=== PATIENT | female | born 1980 | race Caucasian/White ===

== ENCOUNTER 2019-05-26 14:52 | Outpatient (CLI) | payer BC ==
--- NOTE | 2019-05-26 15:48 | RAD ---
XR Chest Pa Lat @ [facility] HISTORY: Chest pain COMPARISON: None FINDINGS: The heart size is normal. The lungs are well expanded without focal areas of consolidation, pneumoth orax or pleural effusions. Postop changes are seen in the left upper lung. IMPRESSION: No radiographic evidence of acute cardiopulmonary process.
== END 2019-05-26 14:53 | disposition home or self-care (01) ==
LOC: RAD 14:52
PROVIDERS: ATTEND Internal Medicine Cardiovascular Disease
DX: R07.9 Chest pain, unspecified (principal)
CPT/HCPCS: 71046

== ENCOUNTER 2020-11-04 07:54 | Outpatient (CLI) | payer OTHER ==
[2020-11-04 17:24] LABS: SARS-CoV-2 PCR by NAA Not Detected (NotDetected)
== END 2020-11-04 07:55 | disposition home or self-care (01) ==
LOC: LABBT 07:54
PROVIDERS: ATTEND Obstetrics & Gynecology
DX: Z01.812 Encounter for preprocedural laboratory examination (principal); Z20.822 Contact with and (suspected) exposure to COVID-19
CPT/HCPCS: 87635; U0003; U0005

== ENCOUNTER 2020-11-09 05:48 | Inpatient (IN) | payer BC ==
[2020-11-09] MEDS ORDERED: hydrALAZINE 20 MG/ML VIAL SLOW IVP PRN ×2 (06:13→08:48)
[2020-11-09] MEDS ORDERED: CEFAZOLIN 2 GM in Premix Bag 1 BAG IVPB SCH (06:13)
[2020-11-09] MEDS ORDERED: Bicitra 30 ML UDCUP PO PRN (06:13)
[2020-11-09] MEDS ORDERED: Lactated Ringer's 1,000 ML IV SCH (06:13)
[2020-11-09] MEDS ORDERED: Promethazine HCl 25 MG/ML VIAL IM PRN ×3 (06:13→08:48)
[2020-11-09] MEDS ORDERED: Ondansetron PF 4 MG/2 ML Vial IVP PRN ×3 (06:13→08:48)
[2020-11-09] MEDS ORDERED: Butorphanol Tartrate 1 MG/ML VIAL SLOW IVP PRN ×2 (06:13→20:30)
[2020-11-09] MEDS ORDERED: Famotidine/PF 20 mg/2ml Vial SLOW IVP PRN (06:13)
[2020-11-09] MEDS ORDERED: Acetaminophen 500 MG TAB PO PRN (06:13)
[2020-11-09 06:20] VITALS: BMI 26.4
[2020-11-09] MEDS ORDERED: Famotidine/PF 20 mg/2ml Vial ONE (06:35)
[2020-11-09] MEDS ORDERED: Morphine PF 10 MG/10 ML VIAL ONE (06:57)
[2020-11-09] MEDS ORDERED: Phenylephrine 40 MG/NS 250 ML 250 ML ONE (06:58)
[2020-11-09] MEDS ORDERED: Oxytocin 10 UNITS/ML VIAL ONE ×2 (06:58→08:09)
[2020-11-09 07:17] LABS: Mean Corpuscular HGB CONC 33.8 g/dL (32.0-36.0); Mean Corpuscular Hemoglobin 30.9 pg (27.0-31.0); Mean Corpuscular Volume 91.6 fL (78.0-98.0); Mean Platelet Volume 8.8 fL (7.4-10.4); Platelet Count 190 thou/uL (130-400); RBC Distribution Width 11.8 % (11.5-14.5); Red Blood Cell (RBC) Count 3.88 mill/uL (4.20-5.40)
[2020-11-09 07:56] LABS: Syphilis Antibody Nonreactive (Nonreactive); Syphilis Antibody Index 0.02 S/CO (<1.00 Non-Reactive)
[2020-11-09 07:57] LABS: HBSAg Index 0.18 S/CO (0-0.99); Hep B Surf Ag Non-Reactive S/CO (NonReactive)
[2020-11-09] MEDS ORDERED: Ondansetron HCl/PF 4 MG/2 ML Vial IVP PRN (08:21)
[2020-11-09] MEDS ORDERED: Naloxone HCl 0.4 mg/ml Vial IV PRN (08:21)
[2020-11-09] MEDS ORDERED: Meperidine HCl/PF 25 MG/ML VIAL SLOW IVP PRN (08:21)
[2020-11-09] MEDS ORDERED: L&D-Morphine 4 MG/ML VIAL SLOW IVP PRN (08:21)
[2020-11-09] MEDS ORDERED: Promethazine HCl 25 MG SUPP PR PRN (08:21)
[2020-11-09] MEDS ORDERED: diphenhydrAMINE 50 MG/ML VIAL IVP PRN (08:21)
[2020-11-09] MEDS ORDERED: Naloxone HCl 0.4 mg/ml Vial IVP PRN ×2 (08:21)
[2020-11-09] MEDS ORDERED: HYDROmorphone 2 MG/ML VIAL SLOW IVP PRN (08:21)
[2020-11-09] MEDS ORDERED: Communication Order-Pharmacy FS SCH (08:30)
[2020-11-09] MEDS ORDERED: Acetaminophen 325 MG TAB PO PRN (08:48)
[2020-11-09] MEDS ORDERED: Lanolin Ointment 7 GM TUBE TOP PRN (08:48)
[2020-11-09] MEDS ORDERED: Bisacodyl 10 MG SUPP PR PRN (08:48)
[2020-11-09] MEDS ORDERED: Adacel (T-DAP) 0.5 ML SYRINGE IM ONE (08:48)
[2020-11-09] MEDS ORDERED: diphenhydrAMINE 25 MG CAP PO PRN (08:48)
[2020-11-09] MEDS ORDERED: Morphine 4 MG/ML VIAL ONE (09:38)
--- NOTE | 2020-11-09 09:45 | OP ---
DATE OF PROCEDURE: 11/09/2020 PREOPERATIVE DIAGNOSIS: A 40-year-old white female, G2, P1, at 38 weeks' gestation with marginal posterior placenta previa. POSTOPERATIVE DIAGNOSIS: A 40-year-old white female, G2, P1, at 38 weeks' gestation with marginal posterior placenta previa. PROCEDURE PERFORMED: Primary low transverse section without extension. BROADCAST OPERATIONS TECHNICIAN SURGEON: Zabrina Matias PA-C. ESTIMATED BLOOD LOSS: 550 mL. COMPLICATIONS: None. COUNTS: Correct x2. ANTIBIOTICS: 2 g Ancef on-call to OR. FINDINGS: 1. Vigorous female , vertex presentation, Apgars 9 and 9 with weight 2611 g or 5 pounds 12 ounces. 2. Clear amniotic fluid noted. 3. Posterior placental location in the marginal previa position. 4. Normal-appearing uterus, tubes, and ovaries. 5. Clear urine present in Castle catheter. POSTPROCEDURE DISPOSITION: Recovery room, stable. DESCRIPTION OF PROCEDURE: The patient previously received informed consent in regard to surgery. She was taken back to the operating room, where she received a spinal block. She was placed in supine position, prepped and draped in usual sterile fashion. SCDs and Castle catheter had been placed. This time a Pfannenstiel incision was made in the lower abdomen, it was carried down the fascia. Fascia was nicked in midline, fascial incision was extended bilaterally using curved Urbano scissors. The rectus fascia was dissected superiorly and inferiorly off the rectus muscle bellies. The rectus muscle bellies divided in midline. Peritoneal cavity was entered. Bladder blade was placed. Vesicouterine peritoneum, bladder flap was made in usual fashion. A 2 cm hysterotomy incision was made in the lower uterine segment. This was extended via finger fractionation. The baby was delivered. The amniotic bag was ruptured. Clear fluid noted. The baby was delivered vertex, the mouth and nares, were bulb suctioned on the abdomen. The cord was doubly clamped and cut and handed to the pediatric team in attendance. Usual cord blood was obtained. Placenta was manually extracted. The uterus was externalized. The uterus curetted of any remaining placental fragments with a dry laparotomy sponge. Hysterotomy incision was then closed in running locking fashion with #1 Monocryl in double-layer closure. Any areas of oozing were made hemostatic with the addition of #1 chromic suture in [id number] stitches to secure hemostasis. Bovie cautery over the line was also performed in addition the uterus was replaced in the abdomen. The pelvis irrigated and suctioned. Any areas of oozing were cauterized and then additional FloSeal was placed over the hysterotomy incision to ensure hemostasis. The rectus muscle bellies were then inspected and noted to be hemostatic prior to fascial closure. The fascia was closed with 0 PDS suture x2 in a running continuous fashion. The subcutaneous area was irrigated and suction cauterized any areas of oozing. The skin was then closed with 4-0 Monocryl subcuticular and Dermabond. The surgery was terminated. There were no anesthetic or surgical complications. Job ID: [id number]
[2020-11-09] MEDS: HYDROcodone/Acetaminophen 5/325 mg Tablet PO PRN (10:33)
[2020-11-09] MEDS: Prenatal Vitamin 1 TAB PO SCH (12:24)
[2020-11-09] MEDS: Docusate Calcium (SURFAK) 240 MG CAP PO SCH ×2 (12:24→21:15)
[2020-11-09] MEDS ORDERED: HYDROcodone/Acetaminophen 5/325 mg Tablet PO PRN ×2 (12:57→20:30)
[2020-11-09] MEDS: Ferrous Sulfate 325 MG TAB PO SCH (14:46)
[2020-11-09] MEDS: Ketorolac Tromethamine 30 MG/ML VIAL IVP PRN ×2 (16:31→23:38)
[2020-11-09] MEDS ORDERED: Meperidine HCl/PF 25 MG/ML VIAL IM PRN (20:30)
[2020-11-09] MEDS ORDERED: Zolpidem Tartrate 5 MG TAB PO PRN (20:30)
[2020-11-09] MEDS ORDERED: Sodium Chloride 0.9% 10 ML ONE ×2 (21:12→23:27)
[2020-11-10 06:26] LABS: Hemoglobin 10.4 g/dL (12.0-16.0); Mean Corpuscular HGB CONC 34.3 g/dL (32.0-36.0); Mean Corpuscular Hemoglobin 31.3 pg (27.0-31.0); Mean Corpuscular Volume 91.5 fL (78.0-98.0); Mean Platelet Volume 8.6 fL (7.4-10.4); Platelet Count 172 thou/uL (130-400); Red Blood Cell (RBC) Count 3.33 mill/uL (4.20-5.40); White Blood Cell (WBC) Count 11.8 thou/uL (4.8-10.8)
[2020-11-10] MEDS: Ferrous Sulfate 325 MG TAB PO SCH ×2 (07:32→17:04)
--- NOTE | 2020-11-10 07:34 | PDOC.OPDEL ---
OB Operative/Delivery Note Delivery Dr/Surgeon: Mesha Assist: Florencio MAYER Pre-Delivery Diagnosis: scheduled section, other (Posterior marginal previa) Procedure/Post Delivery Dx: primary low transverse CS Weeks gestation: 38 Anesthesia: spinal - Findings A Sex: female Weight: 5 lb 12 oz - 1 min: 9 - 5 min: 9 - Additional Findings/Plan Placenta delivered: manual removal Estimated blood loss: 550ml Post delivery plan: routine recovery
--- NOTE | 2020-11-10 07:42 | PDOC.PP ---
Post Progress Note Post Day #: 1 Subjective: Good pain cintrol. Doing well. Vital Signs (12 hours) Temp Pulse Resp BP Pulse Ox 11/10/20 04:20 98.0 F 72 18 102/59 L 98 11/09/20 23:30 98.6 F 61 18 124/65 98 11/09/20 20:20 98.4 F 63 18 114/69 98 Weight Weight 149 lb - Physical Examination Abdominal: + bowel sounds, no distention, appropriately TTP Skin: CS incision dry & intact Result Diagrams: 11/10/20 05:46 Additional Labs: Post Labs Hep Bs Antigen Non-Reactive S/CO (NonReactive) 11/09/20 06:47 Blood Type A POSITIVE 11/09/20 06:47 - Assessment/Plan Post op day#1. Doing well. Routine post op care. May be discharge tomorrow.
[2020-11-10] MEDS: Prenatal Vitamin 1 TAB PO SCH (07:52)
[2020-11-10] MEDS: Docusate Calcium (SURFAK) 240 MG CAP PO SCH ×2 (07:52→21:34)
[2020-11-10] MEDS: HYDROcodone/Acetaminophen 5/325 mg Tablet PO PRN ×3 (07:52→21:35)
[2020-11-10] MEDS: Simethicone Chewable 80 MG TAB PO PRN ×4 (09:26→21:40)
[2020-11-10] MEDS ORDERED: Milk Of Magnesia 30 ML UDCUP PO PRN (17:47)
[2020-11-10] MEDS: Ibuprofen 800 MG TAB PO SCH (21:36)
[2020-11-11] MEDS: Ibuprofen 800 MG TAB PO SCH ×2 (06:07→14:01)
[2020-11-11] MEDS: HYDROcodone/Acetaminophen 5/325 mg Tablet PO PRN ×3 (06:08→16:30)
[2020-11-11] MEDS: Simethicone Chewable 80 MG TAB PO PRN (06:12)
[2020-11-11 08:07] VITALS: BP 114/72; TEMP 98
--- NOTE | 2020-11-11 08:32 | PDOC.PP ---
Post Progress Note Post Day #: 2 PO intake tolerated: yes Flatus: yes Ambulation: yes Vital Signs (12 hours) Temp Pulse Resp BP Pulse Ox 11/11/20 08:06 98.0 F 70 20 114/72 96 11/11/20 03:50 97.6 F 89 18 116/57 L 99 11/11/20 00:05 98.1 F 72 18 131/79 98 11/10/20 20:40 98 Weight Weight 149 lb - Physical Examination Abdominal: no distention, appropriately TTP Extremities: negative homans (B) Skin: CS incision dry & intact, no rash Result Diagrams: 11/10/20 05:46 Additional Labs: Post Labs Hep Bs Antigen Non-Reactive S/CO (NonReactive) 11/09/20 06:47 Blood Type A POSITIVE 11/09/20 06:47 - Assessment/Plan Doing well post op day #2....discharge home. Follow up 2 and 6 weeks...
[2020-11-11] MEDS: Ferrous Sulfate 325 MG TAB PO SCH ×2 (08:37→13:23)
[2020-11-11] MEDS: Docusate Calcium (SURFAK) 240 MG CAP PO SCH (08:40)
[2020-11-11] MEDS: Prenatal Vitamin 1 TAB PO SCH (08:40)
[2020-11-11] MEDS ORDERED: Ondansetron ODT 4 MG TAB PO SCH (17:00)
[2020-11-12] MEDS ORDERED: FLU VACC QS2020-21(6MOS UP)/PF 60 MCG/0.5 ML SYRINGE IM ONE (09:00)
== END 2020-11-11 17:50 | disposition home or self-care (01) | DRG 788 ==
LOC: L&D 05:48 → 3SW 12:05
PROVIDERS: ADMIT Obstetrics & Gynecology; ATTEND Obstetrics & Gynecology
PROC: 10D00Z1 Extraction of Products of Conception, Low, Open Approach (ICD-10-PCS; principal; 2020-11-09)
DX: O44.43 Low lying placenta NOS or without hemorrhage, third trimester (principal); Z3A.38 38 weeks gestation of pregnancy; Z37.0 Single live birth; Z20.822 Contact with and (suspected) exposure to COVID-19; Z23 Encounter for immunization
CPT/HCPCS: 36415; 51702; 85027; 86780; 86850; 86900; 86901; 87340; J1200; J1885; J2270; Q0162; S0028

== ENCOUNTER 2022-09-24 10:50 | Day surgery (SDC) | payer OTHER ==
[2022-09-21 14:46] VITALS: BMI 20.3
[2022-09-24] MEDS ORDERED: Sodium Chloride 0.9% 100 ML ONE (12:37)
[2022-09-24] MEDS ORDERED: CEFAZOLIN 2 GM VIAL ONE (12:37)
[2022-09-24] MEDS ORDERED: Bupivacaine PF 0.5% 30 ML VIAL ONE (12:45)
[2022-09-24] MEDS ORDERED: Midazolam HCl 2 mg/2 ml Vial ONE (12:58)
[2022-09-24] MEDS ORDERED: PROPOFOL 200 MG/20 ML VIAL ONE (13:00)
== END 2022-09-24 14:57 | disposition home or self-care (01) ==
LOC: SDC 10:50
PROVIDERS: ATTEND Orthopaedic Surgery
PROC: 0PSV34Z Reposition Left Finger Phalanx with Internal Fixation Device, Percutaneous Approach (ICD-10-PCS; principal; 2022-09-24)
DX: S62.617A Displaced fracture of proximal phalanx of left little finger, initial encounter for closed fracture (principal); Z79.899 Other long term (current) drug therapy; V00.141A Fall from scooter (nonmotorized), initial encounter
CPT/HCPCS: C1713; J2250; J2704; J3490; S0020